=== PATIENT | female | born 1965 | race Caucasian/White ===

== ENCOUNTER 2017-06-01 16:44 | Emergency (ER) | payer BC ==
[~2017-06-01] VITALS: Ht 160 cm; Wt 63.0 kg
[2017-06-01] MEDS ORDERED: DIPHENHYDRAMINE 25MG CAPSULE PO ONE (20:45)
[2017-06-01] MEDS ORDERED: METOCLOPRAMIDE HCL 5MG TABLET PO ONE (20:45)
[2017-06-01 22:40] VITALS: BP 117/77
== END 2017-06-01 22:57 | disposition home or self-care (01) ==
LOC: ER 17:28
DX: R42 Dizziness and giddiness (principal); R51 Headache
CPT/HCPCS: 70450; 99284; J8597; Q0163

== ENCOUNTER 2017-12-13 17:24 | Emergency (ER) | payer BC ==
[~2017-12-13] VITALS: Ht 162.6 cm; Wt 65.0 kg
[2017-12-13] MEDS ORDERED: IBUPROFEN 600MG TABLET PO ONE (23:00)
[2017-12-13 23:17] VITALS: BP 114/77
== END 2017-12-13 23:21 | disposition home or self-care (01) ==
LOC: ER 17:48
DX: S00.03XA Contusion of scalp, initial encounter (principal); Y08.89XA Assault by other specified means, initial encounter
CPT/HCPCS: 81025; 99283

== ENCOUNTER 2018-12-23 10:25 | Emergency (ER) | payer BC ==
[~2018-12-23] VITALS: Ht 162.6 cm; Wt 59.0 kg
[2018-12-23] MEDS ORDERED: DIPHENHYDRAMINE 50MG/ML VIAL IV ONE (11:45)
[2018-12-23] MEDS ORDERED: SODIUM CHLORIDE 0.9% 1,000 ML IV ONE (11:45)
[2018-12-23] MEDS ORDERED: METOCLOPRAMIDE HCL 10MG/2ML VIAL IV ONE (11:45)
[2018-12-23 12:33] LABS: CLARITY URINE CLEAR (CLEAR); COLOR URINE YELLOW (YELLOW); KETONES URINE NEGATIVE (NEGATIVE); LEUKOCYTE ESTERASE URINE NEGATIVE (NEGATIVE); NITRITE URINE NEGATIVE (NEGATIVE); OCCULT BLOOD URINE 1+ (NEGATIVE); PH URINE 7.5 (4.5-8.0); PROTEIN URINE NEGATIVE (NEGATIVE); SPECIFIC GRAVITY URINE 1.016 (1.005-1.030); UROBILINOGEN URINE 0.2 E.U./dL (0.2-1.0)
[2018-12-23 13:23] LABS: BASOPHILS % 0.6 % (0.0-2.0); EOSINOPHILS % 0.5 % (0.0-5.0); HEMATOCRIT. 36.5 % (36.0-48.0); HEMOGLOBIN. 12.1 g/dL (12.0-16.0); LYMPHOCYTES % 34.3 % (20.0-50.0); MEAN CORPUSCULAR HEMOGLOBIN 29.1 pg (28.0-32.0); MEAN CORPUSCULAR VOLUME 87.9 fL (81.0-99.0); MEAN PLATELET VOLUME 8.2 fl (7.4-10.4); MONOCYTES % 7.8 % (2.0-8.0); NEUTROPHILS % 56.8 % (40.0-76.0); PLATELET 185 x1000/uL (130-400); RED BLOOD CELL COUNT 4.16 mill/uL (4.2-5.4); RED CELL DISTRIBUTION WIDTH 13.2 % (11.6-14.6)
[2018-12-23 13:30] LABS: CHLORIDE 110 mEq/L (98-107)
[2018-12-23 13:31] LABS: PROTHROMBIN TIME 10.7 sec (9.6-11.0)
[2018-12-23] MEDS ORDERED: GADOBENATE DIMEGLUMINE 529 MG/ML 10ML IV ONE (15:14)
[2018-12-23 18:42] VITALS: BP 120/78
== END 2018-12-23 18:48 | disposition home or self-care (01) ==
LOC: ER 10:25
DX: G93.9 Disorder of brain, unspecified (principal); M79.605 Pain in left leg; M79.604 Pain in right leg; R51 Headache; R11.2 Nausea with vomiting, unspecified; R42 Dizziness and giddiness; R53.1 Weakness; R10.9 Unspecified abdominal pain; Z98.890 Other specified postprocedural states
CPT/HCPCS: 36415; 70450; 70553; 80053; 81003; 83690; 85025; 85610; 96374; 96375; 99284; A9577; J1200; J2765; J7030; Z7610

== ENCOUNTER 2020-03-30 13:14 | Emergency (ER) | payer BC ==
[~2020-03-30] VITALS: Ht 157.5 cm; Wt 76.0 kg
[2020-03-30] MEDS ORDERED: KETOROLAC 60MG/2ML VIAL IM ONE (13:45)
[2020-03-30 14:47] VITALS: BP 131/89
== END 2020-03-30 14:48 | disposition home or self-care (01) ==
LOC: ER 13:28
DX: S33.5XXA Sprain of ligaments of lumbar spine, initial encounter (principal); X58.XXXA Exposure to other specified factors, initial encounter; Y93.89 Activity, other specified; Y92.89 Other specified places as the place of occurrence of the external cause; Y99.8 Other external cause status
CPT/HCPCS: 72110; 96372; 99283; J1885